=== PATIENT | male | born 1950 | race Caucasian/White ===

== ENCOUNTER 2020-03-29 13:16 | Inpatient (IN) ==
[2020-03-29 13:59] LABS: ABS Basophils 0.1 10^3/ul (0-0.2); ABS Eosinophils 0.1 10^3/ul (0-0.6); ABS Lymphocytes 1.5 10^3/ul (1.0-4.8); ABS Monocytes 0.7 10^3/ul (0-0.8); Eosinophil % 1.1 %; Hematocrit 46 % (42-52); Hemoglobin 15.6 g/dL (14.0-18.0); Lymphocyte % 14.4 %; Mean Corpuscular HGB Conc 34 g/dL (31-36); Mean Corpuscular Hemoglobin 31 pg (27-31); Mean Corpuscular Volume 90 fL (80-94); Platelet Count 245 10^3/uL (150-450); Red Blood Count 5.09 10^6 /uL (4.18-5.48); Red Cell Distribution Width 13 % (10-15); White Blood Count 10.3 10^3/uL (3.5-10.8)
[2020-03-29 14:24] LABS: Albumin 4.7 g/dL (3.2-5.2); Albumin/Globulin Ratio 1.7 (1-3); BUN/Creatinine Ratio 21.1 (8-20); Calcium 9.9 mg/dL (8.6-10.3); EGFR African American 67.4 (>60); EGFR Non-African American 55.7 (>60); Globulin 2.7 g/dL (2-4); Magnesium 1.8 mg/dL (1.9-2.7); Potassium 4.4 mmol/L (3.5-5.0); Total Bilirubin 0.4 mg/dL (0.2-1.0); Total Protein 7.4 g/dL (6.4-8.9)
[2020-03-29 15:32] LABS: Urine Appearance Cloudy; Urine Bilirubin Negative (Negative); Urine Blood Negative (Negative); Urine Color Yellow; Urine Glucose Negative (Negative); Urine Ketones Negative (Negative); Urine Nitrite Negative (Negative); Urine Protein 1+(30 mg/dL) (Negative); Urine Specific Gravity 1.033 (1.010-1.030); Urine Urobilinogen Negative (Negative)
[2020-03-29 15:57] LABS: Urine Bacteria Absent (Absent); Urine Red Blood Cell Absent (Absent); Urine White Blood Cell Absent (Absent)
[2020-03-29] MEDS ORDERED: Ondansetron 4 mg VIAL 2 MG/ML 2 ml VIAL IV PRN (16:11)
[2020-03-29 16:18] LABS: TSH Ultra Thyroid Stim Horm 0.22 mcIU/mL (0.34-5.60)
[2020-03-29] MEDS: Morphine 2 MG/ML SYRINGE IV PRN ×2 (17:42→21:49)
[2020-03-29] MEDS: Enoxaparin 40 MG/0.4 ML SYR SUBCUT SCH (18:20)
[2020-03-29] MEDS ORDERED: Iodixanol (CONTRAST) 320 MG/ML 100 ML SDV IV ONE (21:02)
[2020-03-29] MEDS: NS 0.9% 1000 ml BAG 1,000 ML IV SCH (22:05)
[2020-03-30] MEDS: Morphine 2 MG/ML SYRINGE IV PRN ×4 (02:43→20:23)
[2020-03-30 05:42] LABS: ABS Basophils 0.1 10^3/ul (0-0.2); ABS Eosinophils 0.2 10^3/ul (0-0.6); ABS Lymphocytes 1.9 10^3/ul (1.0-4.8); ABS Monocytes 1.4 10^3/ul (0-0.8); ABS Neutrophils 10.5 10^3/ul (1.5-7.7); Eosinophil % 1.6 %; Hematocrit 47 % (42-52); Hemoglobin 16.1 g/dL (14.0-18.0); Lymphocyte % 13.5 %; Mean Corpuscular HGB Conc 34 g/dL (31-36); Mean Corpuscular Hemoglobin 31 pg (27-31); Mean Corpuscular Volume 90 fL (80-94); Mean Platelet Volume 6.7 fL (7.4-10.4); Platelet Count 267 10^3/uL (150-450); Red Blood Count 5.21 10^6 /uL (4.18-5.48); Red Cell Distribution Width 13 % (10-15)
[2020-03-30 06:37] LABS: Albumin 4.9 g/dL (3.2-5.2); Anion Gap 11 mmol/L (2-11); CO2 Carbon Dioxide 25 mmol/L (22-32); Calcium 9.9 mg/dL (8.6-10.3); Chloride 100 mmol/L (101-111); Potassium 4.1 mmol/L (3.5-5.0); Sodium 136 mmol/L (135-145)
[2020-03-30 06:43] LABS: ALT 18 U/L (7-52); AST 18 U/L (13-39); Albumin/Globulin Ratio 1.8 (1-3); Alkaline Phosphatase 87 U/L (34-104); BUN/Creatinine Ratio 18.1 (8-20); Blood Urea Nitrogen 21 mg/dL (6-24); CRP High Sensitivity 1.57 mg/L (<2.00); Creatine Kinase 83 U/L (10-223); EGFR African American 75.5 (>60); EGFR Non-African American 62.4 (>60); Globulin 2.8 g/dL (2-4); Glucose 97 mg/dL (70-100); Total Protein 7.7 g/dL (6.4-8.9)
[2020-03-30 07:02] LABS: Erythrocyte Sed Rate 9 mm/Hr (0-19)
[2020-03-30 07:45] LABS: LDH 177 U/L (140-271); Rheumatoid Factor < 10 IU/mL (<15)
[2020-03-30] MEDS ORDERED: Perflutren Lipid Microsphere 3 ML VIAL ONE (12:17)
[2020-03-30 12:28] LABS: Urine Appearance Clear; Urine Bilirubin Negative (Negative); Urine Blood 1+ (Negative); Urine Color Straw; Urine Glucose Negative (Negative); Urine Ketones Trace (Negative); Urine Nitrite Negative (Negative); Urine Protein Negative (Negative); Urine Specific Gravity 1.021 (1.010-1.030); Urine Urobilinogen Negative (Negative)
[2020-03-30 12:37] LABS: Urine Bacteria Absent (Absent); Urine Red Blood Cell 1+(3-5/hpf) (Absent); Urine White Blood Cell Trace(0-5/hpf) (Absent)
[2020-03-30] MEDS: Enoxaparin 40 MG/0.4 ML SYR SUBCUT SCH (16:32)
[2020-03-30] MEDS: Pantoprazole VIAL 40 MG VIAL IV SCH (18:25)
[2020-03-30] MEDS: Senna TAB 8.6 mg TAB PO PRN (20:23)
[2020-03-30] MEDS: NS 0.9% 1000 ml BAG 1,000 ML IV SCH (21:48)
[2020-03-31] MEDS: Morphine 2 MG/ML SYRINGE IV PRN ×6 (00:52→22:32)
[2020-03-31 05:00] LABS: ABS Basophils 0.1 10^3/ul (0-0.2); ABS Eosinophils 0.2 10^3/ul (0-0.6); ABS Lymphocytes 1.6 10^3/ul (1.0-4.8); ABS Monocytes 1.2 10^3/ul (0-0.8); ABS Neutrophils 6.4 10^3/ul (1.5-7.7); Eosinophil % 2.1 %; Hematocrit 44 % (42-52); Hemoglobin 15.1 g/dL (14.0-18.0); Lymphocyte % 17.3 %; Mean Corpuscular HGB Conc 35 g/dL (31-36); Mean Corpuscular Hemoglobin 31 pg (27-31); Mean Corpuscular Volume 89 fL (80-94); Platelet Count 230 10^3/uL (150-450); Red Blood Count 4.89 10^6 /uL (4.18-5.48); Red Cell Distribution Width 13 % (10-15); White Blood Count 9.5 10^3/uL (3.5-10.8)
[2020-03-31 05:20] LABS: Albumin 4.3 g/dL (3.2-5.2); BUN/Creatinine Ratio 17.3 (8-20); Calcium 9.9 mg/dL (8.6-10.3); EGFR African American 80.3 (>60); EGFR Non-African American 66.4 (>60); Globulin 2.2 g/dL (2-4); Total Bilirubin 0.6 mg/dL (0.2-1.0); Total Protein 6.5 g/dL (6.4-8.9)
[2020-03-31] MEDS: Senna TAB 8.6 mg TAB PO PRN ×2 (09:40→22:32)
[2020-03-31] MEDS: Pantoprazole VIAL 40 MG VIAL IV SCH (09:40)
[2020-03-31] MEDS: NS 0.9% 1000 ml BAG 1,000 ML IV SCH (13:10)
[2020-03-31] MEDS: Enoxaparin 40 MG/0.4 ML SYR SUBCUT SCH (17:52)
[2020-04-01] MEDS: Morphine 2 MG/ML SYRINGE IV PRN ×7 (02:30→20:46)
[2020-04-01] MEDS: NS 0.9% 1000 ml BAG 1,000 ML IV SCH ×2 (04:50→17:48)
[2020-04-01 05:35] LABS: ABS Basophils 0.1 10^3/ul (0-0.2); ABS Eosinophils 0.4 10^3/ul (0-0.6); ABS Lymphocytes 1.4 10^3/ul (1.0-4.8); ABS Monocytes 1.3 10^3/ul (0-0.8); ABS Neutrophils 6.9 10^3/ul (1.5-7.7); Eosinophil % 4.1 %; Hematocrit 40 % (42-52); Hemoglobin 14.1 g/dL (14.0-18.0); Lymphocyte % 14.4 %; Mean Corpuscular HGB Conc 35 g/dL (31-36); Mean Corpuscular Hemoglobin 31 pg (27-31); Mean Corpuscular Volume 89 fL (80-94); Mean Platelet Volume 7.1 fL (7.4-10.4); Platelet Count 191 10^3/uL (150-450); Red Cell Distribution Width 13 % (10-15)
[2020-04-01 05:45] LABS: Albumin 3.9 g/dL (3.2-5.2); Albumin/Globulin Ratio 1.6 (1-3); BUN/Creatinine Ratio 21.2 (8-20); Calcium 9.3 mg/dL (8.6-10.3); EGFR African American 85.7 (>60); EGFR Non-African American 70.8 (>60); Globulin 2.5 g/dL (2-4); Potassium 3.8 mmol/L (3.5-5.0); Total Bilirubin 0.5 mg/dL (0.2-1.0); Total Protein 6.4 g/dL (6.4-8.9)
[2020-04-01] MEDS: Senna TAB 8.6 mg TAB PO PRN ×2 (06:34→20:44)
[2020-04-01] MEDS: Polyethylene Glycol 3350 17 GM PACKET PO PRN (09:53)
[2020-04-01] MEDS: Pantoprazole VIAL 40 MG VIAL IV SCH (09:54)
[2020-04-01] MEDS: Enoxaparin 40 MG/0.4 ML SYR SUBCUT SCH (17:09)
[2020-04-02] MEDS: Morphine 2 MG/ML SYRINGE IV PRN ×5 (01:00→22:48)
[2020-04-02] MEDS: Pantoprazole VIAL 40 MG VIAL IV SCH (09:52)
[2020-04-02] MEDS ORDERED: fentaNYL 100 mcg/2 ml 50 MCG/ML VIAL ONE (14:35)
[2020-04-02] MEDS ORDERED: Midazolam 10 mg/10 ml VIAL 1 mg/ml 10 ml VIAL (10 mg) ONE (14:35)
[2020-04-02] MEDS: Enoxaparin 40 MG/0.4 ML SYR SUBCUT SCH (17:05)
[2020-04-02] MEDS: Senna TAB 8.6 mg TAB PO PRN (20:36)
[2020-04-03] MEDS: Morphine 2 MG/ML SYRINGE IV PRN ×6 (01:38→20:26)
[2020-04-03 07:46] LABS: ABS Basophils 0.1 10^3/ul (0-0.2); ABS Eosinophils 0.6 10^3/ul (0-0.6); ABS Lymphocytes 1.3 10^3/ul (1.0-4.8); ABS Monocytes 1.1 10^3/ul (0-0.8); ABS Neutrophils 6.8 10^3/ul (1.5-7.7); Eosinophil % 5.8 %; Hematocrit 37 % (42-52); Hemoglobin 12.8 g/dL (14.0-18.0); Lymphocyte % 12.8 %; Mean Corpuscular HGB Conc 34 g/dL (31-36); Mean Corpuscular Hemoglobin 31 pg (27-31); Mean Corpuscular Volume 90 fL (80-94); Mean Platelet Volume 7.2 fL (7.4-10.4); Platelet Count 185 10^3/uL (150-450); Red Blood Count 4.16 10^6 /uL (4.18-5.48); Red Cell Distribution Width 13 % (10-15); White Blood Count 9.8 10^3/uL (3.5-10.8)
[2020-04-03 07:58] LABS: Albumin 3.6 g/dL (3.2-5.2); Albumin/Globulin Ratio 1.5 (1-3); BUN/Creatinine Ratio 17.7 (8-20); Calcium 8.9 mg/dL (8.6-10.3); EGFR Non-African American 77.7 (>60); Globulin 2.4 g/dL (2-4); Magnesium 1.4 mg/dL (1.9-2.7); Potassium 3.7 mmol/L (3.5-5.0); Total Bilirubin 0.6 mg/dL (0.2-1.0)
[2020-04-03] MEDS: Pantoprazole VIAL 40 MG VIAL IV SCH (08:43)
[2020-04-03] MEDS ORDERED: Magnesium Sulf 4 GM/100 ML IV 4,000 MG/100 ML BAG IVPB ONE (12:30)
[2020-04-03] MEDS: Enoxaparin 40 MG/0.4 ML SYR SUBCUT SCH (17:15)
[2020-04-03] MEDS: Polyethylene Glycol 3350 17 GM PACKET PO PRN (18:27)
[2020-04-03] MEDS ORDERED: Sodium Phosphate ADULT ENEMA 133 ML BTL PR PRN (18:50)
[2020-04-04] MEDS: Morphine 2 MG/ML SYRINGE IV PRN ×4 (05:49→16:12)
[2020-04-04 06:35] LABS: ABS Lymphocytes 0.9 10^3/ul (1.0-4.8); ABS Monocytes 0.6 10^3/ul (0-0.8); ABS Neutrophils 5.5 10^3/ul (1.5-7.7); Eosinophil % 0.1 %; Hematocrit 38 % (42-52); Hemoglobin 13.3 g/dL (14.0-18.0); Lymphocyte % 12.9 %; Mean Corpuscular HGB Conc 35 g/dL (31-36); Mean Corpuscular Hemoglobin 31 pg (27-31); Mean Corpuscular Volume 89 fL (80-94); Mean Platelet Volume 6.9 fL (7.4-10.4); Platelet Count 209 10^3/uL (150-450); Red Cell Distribution Width 13 % (10-15); White Blood Count 7.1 10^3/uL (3.5-10.8)
[2020-04-04] MEDS: Pantoprazole VIAL 40 MG VIAL IV SCH (09:46)
[2020-04-04] MEDS: Enoxaparin 40 MG/0.4 ML SYR SUBCUT SCH (17:08)
[2020-04-05] MEDS: Polyethylene Glycol 3350 17 GM PACKET PO PRN (08:29)
[2020-04-05] MEDS: Senna TAB 8.6 mg TAB PO PRN (08:29)
[2020-04-05] MEDS: Pantoprazole VIAL 40 MG VIAL IV SCH (08:29)
[2020-04-05 15:23] VITALS: BP 147/85
== END 2020-04-05 14:16 | disposition home or self-care (01) | DRG 73 ==
LOC: CHOA 13:16 → MEDTELE 16:09
PROVIDERS: ADMIT Internal Medicine Hematology & Oncology; ATTEND Internal Medicine Hematology & Oncology

== ENCOUNTER 2020-07-11 15:47 | Inpatient (IN) ==
[2020-07-11] MEDS ORDERED: Senna TAB 8.6 mg TAB PO PRN (17:25)
[2020-07-11] MEDS: Magic MouthWash2-BEN/MAAL/LIDO/NYST 240 ML BTL (alt formulation) SWISH SWAL SCH (21:06)
[2020-07-12 06:09] LABS: ABS Eosinophils 0.1 10^3/ul (0-0.6); ABS Lymphocytes 0.9 10^3/ul (1.0-4.8); ABS Monocytes 0.8 10^3/ul (0-0.8); ABS Neutrophils 2.2 10^3/ul (1.5-7.7); Eosinophil % 2.6 %; Hematocrit 26 % (42-52); Hemoglobin 8.7 g/dL (14.0-18.0); Lymphocyte % 21.9 %; Mean Corpuscular HGB Conc 33 g/dL (31-36); Mean Corpuscular Hemoglobin 32 pg (27-31); Mean Corpuscular Volume 96 fL (80-94); Mean Platelet Volume 8.3 fL (7.4-10.4); Nucleated Red Blood Cells % 0.4; Platelet Count 64 10^3/uL (150-450); Red Cell Distribution Width 21 % (10-15); White Blood Count 3.9 10^3/uL (3.5-10.8)
[2020-07-12 06:17] LABS: ALT 12 U/L (7-52); AST 14 U/L (13-39); Albumin 3.5 g/dL (3.2-5.2); Albumin/Globulin Ratio 1.5 (1-3); Alkaline Phosphatase 141 U/L (34-104); Anion Gap 6 mmol/L (2-11); BUN/Creatinine Ratio 21.7 (8-20); Blood Urea Nitrogen 20 mg/dL (6-24); CO2 Carbon Dioxide 26 mmol/L (22-32); Calcium 8.8 mg/dL (8.6-10.3); Chloride 106 mmol/L (101-111); EGFR African American 98.7 (>60); EGFR Non-African American 81.6 (>60); Globulin 2.3 g/dL (2-4); Glucose 96 mg/dL (70-100); Magnesium 2.1 mg/dL (1.9-2.7); Potassium 4.1 mmol/L (3.5-5.0); Sodium 138 mmol/L (135-145); Total Protein 5.8 g/dL (6.4-8.9)
[2020-07-12 08:54] LABS: INR 1.12 (0.82-1.09)
[2020-07-12] MEDS ORDERED: Perflutren Lipid Microsphere 3 ML VIAL ONE (09:38)
[2020-07-12] MEDS: Cholecalciferol (VIT D3) 1,000 unit TAB PO SCH (10:53)
[2020-07-12] MEDS: Magic MouthWash2-BEN/MAAL/LIDO/NYST 240 ML BTL (alt formulation) SWISH SWAL SCH ×5 (10:55→21:14)
[2020-07-12 12:03] LABS: Cholesterol 106 mg/dL; HDL Cholesterol 40.2 mg/dL; LDL Cholesterol 35 mg/dL; Triglycerides 153 mg/dL
[2020-07-12 12:08] LABS: CKMB ng/mL 2.1 ng/mL (0.6-6.3)
[2020-07-12 14:27] LABS: Erythrocyte Sed Rate 55 mm/Hr (0-19)
[2020-07-13] MEDS: Magic MouthWash2-BEN/MAAL/LIDO/NYST 240 ML BTL (alt formulation) SWISH SWAL SCH ×4 (08:53→22:00)
[2020-07-13] MEDS: Cholecalciferol (VIT D3) 1,000 unit TAB PO SCH (08:53)
[2020-07-13 15:27] LABS: ABS Eosinophils 0.2 10^3/ul (0-0.6); ABS Lymphocytes 1.1 10^3/ul (1.0-4.8); ABS Monocytes 0.9 10^3/ul (0-0.8); ABS Neutrophils 2.2 10^3/ul (1.5-7.7); Eosinophil % 5.4 %; Hematocrit 27 % (42-52); Hemoglobin 8.8 g/dL (14.0-18.0); Lymphocyte % 24.3 %; Mean Corpuscular HGB Conc 33 g/dL (31-36); Mean Corpuscular Hemoglobin 32 pg (27-31); Mean Corpuscular Volume 97 fL (80-94); Mean Platelet Volume 8.3 fL (7.4-10.4); Nucleated Red Blood Cells % 0.4; Platelet Count 91 10^3/uL (150-450); Red Blood Count 2.73 10^6 /uL (4.18-5.48); Red Cell Distribution Width 21 % (10-15); White Blood Count 4.4 10^3/uL (3.5-10.8)
[2020-07-13 15:28] LABS: Albumin 3.2 g/dL (3.2-5.2); Albumin/Globulin Ratio 1.5 (1-3); BUN/Creatinine Ratio 25.3 (8-20); Calcium 8.6 mg/dL (8.6-10.3); EGFR Non-African American 82.6 (>60); Globulin 2.2 g/dL (2-4); Potassium 3.9 mmol/L (3.5-5.0); Total Bilirubin 0.3 mg/dL (0.2-1.0); Total Protein 5.4 g/dL (6.4-8.9)
[2020-07-13 18:38] LABS: TSH Ultra Thyroid Stim Horm 2.86 mcIU/mL (0.34-5.60)
[2020-07-14] MEDS: Cholecalciferol (VIT D3) 1,000 unit TAB PO SCH (09:21)
[2020-07-14] MEDS: Magic MouthWash2-BEN/MAAL/LIDO/NYST 240 ML BTL (alt formulation) SWISH SWAL SCH ×2 (09:23→12:15)
[2020-07-14 11:39] VITALS: BP 120/66
== END 2020-07-14 15:20 | disposition home or self-care (01) | DRG 291 ==
LOC: CHOA 15:47 → MEDTELE 17:02 → INTOOBSV 17:02 → MEDTELE 18:16
PROVIDERS: ADMIT Internal Medicine Hematology & Oncology; ATTEND Internal Medicine Hematology & Oncology

== ENCOUNTER 2020-07-23 16:17 | Inpatient (IN) ==
[2020-07-23 18:22] LABS: Hematocrit 35 % (42-52); Hemoglobin 11.4 g/dL (14.0-18.0); Mean Corpuscular HGB Conc 33 g/dL (31-36); Mean Corpuscular Hemoglobin 33 pg (27-31); Mean Corpuscular Volume 100 fL (80-94); Mean Platelet Volume 8.1 fL (7.4-10.4); Platelet Count 237 10^3/uL (150-450); Red Blood Count 3.48 10^6 /uL (4.18-5.48); Red Cell Distribution Width 26 % (10-15); White Blood Count 11.3 10^3/uL (3.5-10.8)
[2020-07-23 18:32] LABS: Troponin I 0.28 ng/mL (<0.03)
[2020-07-23 18:33] LABS: AST 758 U/L (13-39); Albumin/Globulin Ratio 1.7 (1-3); Alkaline Phosphatase 677 U/L (34-104); Anion Gap 14 mmol/L (2-11); BUN/Creatinine Ratio 30.1 (8-20); Blood Urea Nitrogen 68 mg/dL (6-24); C Reactive Protein 42.29 mg/L (<8.01); CO2 Carbon Dioxide 24 mmol/L (22-32); Chloride 99 mmol/L (101-111); Creatine Kinase 1346 U/L (10-223); EGFR Non-African American 28.9 (>60); Globulin 2.4 g/dL (2-4); Glucose 73 mg/dL (70-100); Potassium 4.7 mmol/L (3.5-5.0); Sodium 137 mmol/L (135-145); Total Protein 6.4 g/dL (6.4-8.9)
[2020-07-23] MEDS ORDERED: cefTRIAXone 1 gm/50 mL NS BAG 1 GM/50 ML BAG IVPB ONE (18:42)
[2020-07-23] MEDS ORDERED: Furosemide 40 mg/4 ml IV VIAL IV SLOW PU ONE (18:43)
[2020-07-23] MEDS ORDERED: Azithromycin 250 MG in NS 0.9% 250 ml 250 ML IVPB ONE (18:43)
[2020-07-23 18:50] LABS: ALT 970 U/L (7-52)
[2020-07-23 19:11] LABS: Microcytosis 1+; Polychromasia 2+
[2020-07-23 19:12] LABS: ABS Lymphocytes 0.9 10^3/ul (1.0-4.8); ABS Monocytes 1.6 10^3/ul (0-0.8); ABS Neutrophils 8.9 10^3/ul (1.5-7.7); ABS Nucleated RBC 0.8 10^3/ul; Nucleated Red Blood Cells % 7.3
[2020-07-23] MEDS ORDERED: NS 0.9% 1000 ml BAG 1,000 ML IV SCH (21:45)
[2020-07-23 21:58] LABS: CKMB ng/mL 6.8 ng/mL (0.6-6.3)
[2020-07-23] MEDS: methylPREDNISolone 125 mg 2 ML VIAL IV SCH (23:08)
[2020-07-24 01:39] LABS: Urine Appearance Cloudy; Urine Bilirubin Negative (Negative); Urine Blood 3+ (Negative); Urine Color Yellow; Urine Glucose Negative (Negative); Urine Ketones Negative (Negative); Urine Nitrite Negative (Negative); Urine Protein Negative (Negative); Urine Specific Gravity 1.011 (1.010-1.030); Urine Urobilinogen Negative (Negative)
[2020-07-24 01:48] LABS: Urine Creatinine Concentration 36.31 mg/dL
[2020-07-24 01:49] LABS: Urine Bacteria 1+ (Absent); Urine Red Blood Cell 3+(>10/hpf) (Absent); Urine White Blood Cell Trace(0-5/hpf) (Absent)
[2020-07-24 04:29] LABS: Hematocrit 34 % (42-52); Hemoglobin 10.8 g/dL (14.0-18.0); Mean Corpuscular HGB Conc 32 g/dL (31-36); Mean Corpuscular Hemoglobin 33 pg (27-31); Mean Corpuscular Volume 101 fL (80-94); Mean Platelet Volume 8.1 fL (7.4-10.4); Platelet Count 218 10^3/uL (150-450); Red Blood Count 3.31 10^6 /uL (4.18-5.48); Red Cell Distribution Width 26 % (10-15); White Blood Count 11.1 10^3/uL (3.5-10.8)
[2020-07-24 04:30] LABS: INR 2.24 (0.82-1.09)
[2020-07-24 04:38] LABS: AST 386 U/L (13-39); Albumin 3.6 g/dL (3.2-5.2); Albumin/Globulin Ratio 1.6 (1-3); Alkaline Phosphatase 597 U/L (34-104); Anion Gap 15 mmol/L (2-11); BUN/Creatinine Ratio 31.9 (8-20); Blood Urea Nitrogen 68 mg/dL (6-24); CO2 Carbon Dioxide 24 mmol/L (22-32); Calcium 8.4 mg/dL (8.6-10.3); Chloride 100 mmol/L (101-111); EGFR African American 37.5 (>60); Globulin 2.3 g/dL (2-4); Glucose 82 mg/dL (70-100); Potassium 4.2 mmol/L (3.5-5.0); Sodium 139 mmol/L (135-145); Total Protein 5.9 g/dL (6.4-8.9)
[2020-07-24 04:44] LABS: Troponin I 0.25 ng/mL (<0.03)
[2020-07-24 04:55] LABS: ALT 738 U/L (7-52)
[2020-07-24 05:24] LABS: ABS Lymphocytes 0.4 10^3/ul (1.0-4.8); ABS Monocytes 0.6 10^3/ul (0-0.8); ABS Nucleated RBC 0.3 10^3/ul; Lymphocyte % 3.8 %; Nucleated Red Blood Cells % 2.7
[2020-07-24 08:20] LABS: Creatine Kinase 1176 U/L (10-223)
[2020-07-24] MEDS ORDERED: Perflutren Lipid Microsphere 3 ML VIAL ONE (09:07)
[2020-07-24] MEDS: Cholecalciferol (VIT D3) 1,000 unit TAB PO SCH (09:54)
[2020-07-24] MEDS: methylPREDNISolone 125 mg 2 ML VIAL IV SCH (09:55)
[2020-07-24 11:56] LABS: Magnesium 2.6 mg/dL (1.9-2.7)
[2020-07-24] MEDS ORDERED: methylPREDNISolone 125 mg 1,000 MG in NS 0.9% 100 ml BAG 100 ML IV SCH (12:00)
[2020-07-24] MEDS: methylPREDNISolone SOD SUCC 1000 MG in NS 0.9% 100 ML IVPB SCH (12:24)
[2020-07-24 21:26] LABS: Albumin 3.4 g/dL (3.2-5.2); Albumin/Globulin Ratio 1.5 (1-3); BUN/Creatinine Ratio 32.4 (8-20); Calcium 8.5 mg/dL (8.6-10.3); EGFR African American 46.7 (>60); EGFR Non-African American 38.6 (>60); Globulin 2.3 g/dL (2-4); Potassium 4.2 mmol/L (3.5-5.0); Total Bilirubin 0.8 mg/dL (0.2-1.0); Total Protein 5.7 g/dL (6.4-8.9)
[2020-07-25 06:09] LABS: ABS Basophils 0.1 10^3/ul (0-0.2); ABS Lymphocytes 0.4 10^3/ul (1.0-4.8); ABS Monocytes 0.8 10^3/ul (0-0.8); ABS Neutrophils 11.9 10^3/ul (1.5-7.7); ABS Nucleated RBC 0.3 10^3/ul; Hematocrit 34 % (42-52); Hemoglobin 10.9 g/dL (14.0-18.0); Lymphocyte % 2.8 %; Mean Corpuscular HGB Conc 33 g/dL (31-36); Mean Corpuscular Hemoglobin 33 pg (27-31); Mean Corpuscular Volume 102 fL (80-94); Mean Platelet Volume 8.1 fL (7.4-10.4); Nucleated Red Blood Cells % 1.9; Platelet Count 225 10^3/uL (150-450); Red Blood Count 3.31 10^6 /uL (4.18-5.48); Red Cell Distribution Width 26 % (10-15); White Blood Count 13.2 10^3/uL (3.5-10.8)
[2020-07-25 06:16] LABS: ALT 443 U/L (7-52); Albumin 3.4 g/dL (3.2-5.2); Albumin/Globulin Ratio 1.5 (1-3); Alkaline Phosphatase 495 U/L (34-104); Anion Gap 9 mmol/L (2-11); BUN/Creatinine Ratio 36.2 (8-20); Blood Urea Nitrogen 59 mg/dL (6-24); CO2 Carbon Dioxide 29 mmol/L (22-32); Calcium 8.6 mg/dL (8.6-10.3); Chloride 102 mmol/L (101-111); EGFR Non-African American 42.2 (>60); Globulin 2.3 g/dL (2-4); Glucose 178 mg/dL (70-100); Potassium 4.2 mmol/L (3.5-5.0); Sodium 140 mmol/L (135-145); Total Protein 5.7 g/dL (6.4-8.9)
[2020-07-25 06:45] LABS: AST 120 U/L (13-39)
[2020-07-25] MEDS: methylPREDNISolone SOD SUCC 1000 MG in NS 0.9% 100 ML IVPB SCH (08:47)
[2020-07-25] MEDS: Cholecalciferol (VIT D3) 1,000 unit TAB PO SCH (08:47)
[2020-07-25 08:48] LABS: Magnesium 2.4 mg/dL (1.9-2.7)
[2020-07-25 11:45] LABS: Creatine Kinase 397 U/L (10-223)
[2020-07-25 12:03] LABS: Troponin I 0.15 ng/mL (<0.03)
[2020-07-25] MEDS ORDERED: Ondansetron 4 mg VIAL 2 MG/ML 2 ml VIAL IV ONE (18:10)
[2020-07-25] MEDS ORDERED: Ondansetron 4 mg VIAL 2 MG/ML 2 ml VIAL ONE (18:11)
[2020-07-26 06:47] LABS: INR 1.74 (0.82-1.09)
[2020-07-26 06:50] LABS: Creatine Kinase 318 U/L (10-223)
[2020-07-26 06:56] LABS: Troponin I 0.14 ng/mL (<0.03)
[2020-07-26 07:30] LABS: Calcium 8.8 mg/dL (8.6-10.3); Magnesium 2.4 mg/dL (1.9-2.7); Potassium 4.7 mmol/L (3.5-5.0)
[2020-07-26 07:35] LABS: BUN/Creatinine Ratio 34.7 (8-20); C Reactive Protein 14.35 mg/L (<8.01); EGFR Non-African American 34.7 (>60)
[2020-07-26] MEDS: Cholecalciferol (VIT D3) 1,000 unit TAB PO SCH (08:36)
[2020-07-26] MEDS: methylPREDNISolone SOD SUCC 1000 MG in NS 0.9% 100 ML IVPB SCH (09:11)
[2020-07-26 09:56] LABS: Erythrocyte Sed Rate 22 mm/Hr (0-19)
[2020-07-26 10:10] LABS: ABS Lymphocytes 0.4 10^3/ul (1.0-4.8); ABS Monocytes 1.2 10^3/ul (0-0.8); ABS Neutrophils 15.4 10^3/ul (1.5-7.7); ABS Nucleated RBC 0.3 10^3/ul; Hematocrit 33 % (42-52); Hemoglobin 10.5 g/dL (14.0-18.0); Lymphocyte % 2.3 %; Mean Corpuscular HGB Conc 32 g/dL (31-36); Mean Corpuscular Hemoglobin 33 pg (27-31); Mean Corpuscular Volume 103 fL (80-94); Mean Platelet Volume 8.4 fL (7.4-10.4); Nucleated Red Blood Cells % 1.7; Platelet Count 170 10^3/uL (150-450); Red Blood Count 3.22 10^6 /uL (4.18-5.48); Red Cell Distribution Width 26 % (10-15)
[2020-07-26 10:33] LABS: Polychromasia 2+
[2020-07-27 05:41] LABS: ABS Basophils 0.1 10^3/ul (0-0.2); ABS Lymphocytes 0.4 10^3/ul (1.0-4.8); ABS Monocytes 1.4 10^3/ul (0-0.8); ABS Neutrophils 14.3 10^3/ul (1.5-7.7); ABS Nucleated RBC 0.2 10^3/ul; Hematocrit 34 % (42-52); Hemoglobin 10.7 g/dL (14.0-18.0); Lymphocyte % 2.7 %; Mean Corpuscular HGB Conc 32 g/dL (31-36); Mean Corpuscular Hemoglobin 33 pg (27-31); Mean Corpuscular Volume 103 fL (80-94); Mean Platelet Volume 8.7 fL (7.4-10.4); Nucleated Red Blood Cells % 1.4; Platelet Count 143 10^3/uL (150-450); Red Cell Distribution Width 26 % (10-15); White Blood Count 16.2 10^3/uL (3.5-10.8)
[2020-07-27 05:55] LABS: Albumin 3.6 g/dL (3.2-5.2); Albumin/Globulin Ratio 1.6 (1-3); BUN/Creatinine Ratio 39.7 (8-20); EGFR African American 45.8 (>60); EGFR Non-African American 37.8 (>60); Globulin 2.3 g/dL (2-4); Potassium 5.2 mmol/L (3.5-5.0); Total Bilirubin 0.8 mg/dL (0.2-1.0); Total Protein 5.9 g/dL (6.4-8.9)
[2020-07-27] MEDS: Cholecalciferol (VIT D3) 1,000 unit TAB PO SCH (10:20)
[2020-07-27] MEDS: methylPREDNISolone SOD SUCC 1000 MG in NS 0.9% 100 ML IVPB SCH (10:21)
[2020-07-27] MEDS: Senna TAB 8.6 mg TAB PO PRN (19:57)
[2020-07-28 05:13] LABS: ABS Lymphocytes 0.3 10^3/ul (1.0-4.8); ABS Monocytes 1.5 10^3/ul (0-0.8); ABS Neutrophils 16.3 10^3/ul (1.5-7.7); ABS Nucleated RBC 0.1 10^3/ul; Hematocrit 35 % (42-52); Hemoglobin 10.9 g/dL (14.0-18.0); Lymphocyte % 1.8 %; Mean Corpuscular HGB Conc 31 g/dL (31-36); Mean Corpuscular Hemoglobin 32 pg (27-31); Mean Corpuscular Volume 103 fL (80-94); Mean Platelet Volume 9.2 fL (7.4-10.4); Nucleated Red Blood Cells % 0.4; Platelet Count 115 10^3/uL (150-450); Red Blood Count 3.38 10^6 /uL (4.18-5.48); Red Cell Distribution Width 26 % (10-15); White Blood Count 18.2 10^3/uL (3.5-10.8)
[2020-07-28 05:25] LABS: Albumin 3.5 g/dL (3.2-5.2); Albumin/Globulin Ratio 1.5 (1-3); BUN/Creatinine Ratio 45.3 (8-20); Calcium 8.8 mg/dL (8.6-10.3); EGFR African American 62.3 (>60); EGFR Non-African American 51.5 (>60); Globulin 2.4 g/dL (2-4); Total Bilirubin 0.8 mg/dL (0.2-1.0); Total Protein 5.9 g/dL (6.4-8.9)
[2020-07-28 05:38] LABS: Potassium 5.6 mmol/L (3.5-5.0)
[2020-07-28] MEDS: Cholecalciferol (VIT D3) 1,000 unit TAB PO SCH (09:35)
[2020-07-28] MEDS: methylPREDNISolone SOD SUCC 1000 MG in NS 0.9% 100 ML IVPB SCH (10:21)
[2020-07-28] MEDS ORDERED: Albuterol/Ipratropium NEB.SOL (2.5/0.5 MG) 3 ML NEB.SOLN INH PRN (14:00)
[2020-07-28] MEDS: Polyethylene Glycol 3350 17 GM PACKET PO SCH (15:09)
[2020-07-28] MEDS: Senna TAB 8.6 mg TAB PO PRN (20:58)
[2020-07-29 05:45] LABS: BUN/Creatinine Ratio 46.8 (8-20); Calcium 8.5 mg/dL (8.6-10.3); EGFR African American 79.5 (>60); EGFR Non-African American 65.7 (>60); Potassium 4.9 mmol/L (3.5-5.0)
[2020-07-29] MEDS: Cholecalciferol (VIT D3) 1,000 unit TAB PO SCH (08:42)
[2020-07-29] MEDS: Polyethylene Glycol 3350 17 GM PACKET PO SCH (08:50)
[2020-07-29] MEDS ORDERED: methylPREDNISolone SOD SUCC 1000 MG ML VIAL IVPB ONE (09:00)
[2020-07-29] MEDS ORDERED: methylPREDNISolone SOD SUCC 1000 MG in NS 0.9% 100 ML IVPB ONE (09:00)
[2020-07-29] MEDS: Senna TAB 8.6 mg TAB PO PRN (21:22)
[2020-07-30] MEDS: Cholecalciferol (VIT D3) 1,000 unit TAB PO SCH (09:09)
[2020-07-30] MEDS: Polyethylene Glycol 3350 17 GM PACKET PO SCH (09:10)
[2020-07-30 09:40] LABS: ABS Lymphocytes 0.3 10^3/ul (1.0-4.8); ABS Monocytes 1.3 10^3/ul (0-0.8); ABS Neutrophils 16.9 10^3/ul (1.5-7.7); ABS Nucleated RBC 0.1 10^3/ul; Hematocrit 35 % (42-52); Lymphocyte % 1.5 %; Mean Corpuscular HGB Conc 31 g/dL (31-36); Mean Corpuscular Hemoglobin 32 pg (27-31); Mean Corpuscular Volume 103 fL (80-94); Mean Platelet Volume 8.7 fL (7.4-10.4); Nucleated Red Blood Cells % 0.2; Platelet Count 99 10^3/uL (150-450); Red Blood Count 3.39 10^6 /uL (4.18-5.48); Red Cell Distribution Width 25 % (10-15); White Blood Count 18.5 10^3/uL (3.5-10.8)
[2020-07-30 09:51] LABS: Albumin 3.4 g/dL (3.2-5.2); Albumin/Globulin Ratio 1.5 (1-3); BUN/Creatinine Ratio 40.2 (8-20); Calcium 8.6 mg/dL (8.6-10.3); EGFR African American 87.6 (>60); EGFR Non-African American 72.4 (>60); Globulin 2.2 g/dL (2-4); Potassium 4.6 mmol/L (3.5-5.0); Total Bilirubin 0.7 mg/dL (0.2-1.0); Total Protein 5.6 g/dL (6.4-8.9)
[2020-07-30] MEDS: Senna TAB 8.6 mg TAB PO PRN (19:55)
[2020-07-31 04:59] LABS: ABS Lymphocytes 0.7 10^3/ul (1.0-4.8); ABS Monocytes 1.8 10^3/ul (0-0.8); ABS Neutrophils 17.9 10^3/ul (1.5-7.7); Hematocrit 35 % (42-52); Hemoglobin 11.3 g/dL (14.0-18.0); Lymphocyte % 3.4 %; Mean Corpuscular HGB Conc 32 g/dL (31-36); Mean Corpuscular Hemoglobin 32 pg (27-31); Mean Corpuscular Volume 101 fL (80-94); Nucleated Red Blood Cells % 0.1; Platelet Count 107 10^3/uL (150-450); Red Cell Distribution Width 25 % (10-15); White Blood Count 20.4 10^3/uL (3.5-10.8)
[2020-07-31 05:11] LABS: Albumin 3.2 g/dL (3.2-5.2); Albumin/Globulin Ratio 1.8 (1-3); BUN/Creatinine Ratio 35.6 (8-20); Calcium 8.5 mg/dL (8.6-10.3); EGFR African American 101.2 (>60); EGFR Non-African American 83.7 (>60); Globulin 1.8 g/dL (2-4); Potassium 4.6 mmol/L (3.5-5.0); Total Bilirubin 0.8 mg/dL (0.2-1.0)
[2020-07-31] MEDS: Cholecalciferol (VIT D3) 1,000 unit TAB PO SCH (09:40)
[2020-07-31] MEDS: Polyethylene Glycol 3350 17 GM PACKET PO SCH (09:40)
[2020-08-01] MEDS: Cholecalciferol (VIT D3) 1,000 unit TAB PO SCH (08:39)
[2020-08-01] MEDS: Senna TAB 8.6 mg TAB PO PRN (08:39)
[2020-08-01] MEDS: Polyethylene Glycol 3350 17 GM PACKET PO SCH (08:51)
[2020-08-01] MEDS ORDERED: Sodium Phosphate ADULT ENEMA 133 ML BTL PR ONE (08:58)
[2020-08-01] MEDS ORDERED: Benzocaine/Menthol LOZ MT PRN (11:32)
[2020-08-01 11:50] VITALS: BP 131/81
== END 2020-08-01 13:15 | DRG 442 ==
LOC: ED 16:17 → MEDTELE 21:10 → ICU 07-24 12:08 → MEDTELE 07-25 18:36
PROVIDERS: ADMIT Internal Medicine; ATTEND Internal Medicine Hematology & Oncology

== ENCOUNTER 2020-12-30 08:12 | Inpatient (IN) ==
[2020-12-30 09:07] LABS: Hematocrit 42 % (42-52); Hemoglobin 14.4 g/dL (14.0-18.0); Mean Corpuscular HGB Conc 35 g/dL (31-36); Mean Corpuscular Hemoglobin 34 pg (27-31); Mean Corpuscular Volume 97 fL (80-94); Platelet Count 212 10^3/uL (150-450); Red Cell Distribution Width 14 % (10-15); White Blood Count 7.5 10^3/uL (3.5-10.8)
[2020-12-30 09:25] LABS: ALT 11 U/L (7-52); AST 11 U/L (13-39); Albumin 4.3 g/dL (3.2-5.2); Albumin/Globulin Ratio 1.7 (1-3); Alkaline Phosphatase 73 U/L (35-149); Anion Gap 14 mmol/L (2-11); Blood Urea Nitrogen 44 mg/dL (6-24); CO2 Carbon Dioxide 21 mmol/L (22-32); Chloride 101 mmol/L (101-111); EGFR African American 58.7 (>60); EGFR Non-African American 48.5 (>60); Globulin 2.6 g/dL (2-4); Glucose 116 mg/dL (70-100); Magnesium 1.3 mg/dL (1.9-2.7); Potassium 3.1 mmol/L (3.5-5.0); Sodium 136 mmol/L (135-145); Total Protein 6.9 g/dL (6.4-8.9)
[2020-12-30] MEDS ORDERED: Lactated Ringers 1000 ml BAG 1,000 ML IV ONE (09:28)
[2020-12-30 09:34] LABS: Troponin I 0.06 ng/mL (<0.03)
[2020-12-30] MEDS ORDERED: Magnesium Sulf 4 GM/100 ML IV 4,000 MG/100 ML BAG IVPB ONE (09:40)
[2020-12-30 09:58] LABS: ABS Lymphocytes 0.8 10^3/ul (1.0-4.8); ABS Neutrophils 4.7 10^3/ul (1.5-7.7); Eosinophil % 0.2 %; Lymphocyte % 10.1 %
[2020-12-30] MEDS ORDERED: KCL 20 MEQ/100 ML IVPREMIX 20 MEQ/100 ML BAG IV ONE (10:35)
[2020-12-30] MEDS ORDERED: Iodixanol (CONTRAST) 320 MG/ML 100 ML SDV IV ONE (10:43)
[2020-12-30 13:13] LABS: Rapid COVID-19 Molecular Undetected (Undetected)
[2020-12-30] MEDS ORDERED: Enoxaparin 40 MG/0.4 ML SYR SUBCUT SCH (15:00)
[2020-12-30] MEDS ORDERED: Cefepime 2 GM in Dextrose 2 GM/50 ML BAG IV SCH (15:00)
[2020-12-30] MEDS ORDERED: metroNIDAZOLE IV 250 MG/50ML 50 ML IVPB SCH (16:00)
[2020-12-30] MEDS: Ondansetron 4 mg VIAL 2 MG/ML 2 ml VIAL IV PRN ×2 (17:53→22:37)
[2020-12-30] MEDS: NS 0.9% 1000 ml BAG 1,000 ML IV SCH (18:16)
[2020-12-30] MEDS: metroNIDAZOLE IV 250 MG/50ML 50 ML IVPB SCH (20:40)
[2020-12-31] MEDS: metroNIDAZOLE IV 250 MG/50ML 50 ML IVPB SCH ×2 (03:12→12:34)
[2020-12-31 03:28] LABS: Urine Appearance Cloudy; Urine Bilirubin Negative (Negative); Urine Blood Negative (Negative); Urine Color Yellow; Urine Glucose 1+(50 mg/dL) (Negative); Urine Ketones Trace (Negative); Urine Nitrite Negative (Negative); Urine Protein 1+(30 mg/dL) (Negative); Urine Urobilinogen Negative (Negative)
[2020-12-31 03:34] LABS: Urine Bacteria Absent (Absent); Urine Red Blood Cell 1+(3-5/hpf) (Absent); Urine White Blood Cell Trace(0-5/hpf) (Absent)
[2020-12-31 03:46] LABS: Urine Specific Gravity > 1.060 (1.002-1.030)
[2020-12-31] MEDS: Cefepime 2 GM in Dextrose 2 GM/50 ML BAG IV SCH ×2 (04:25→15:36)
[2020-12-31] MEDS: Ondansetron 4 mg VIAL 2 MG/ML 2 ml VIAL IV PRN (05:33)
[2020-12-31 06:02] LABS: Hematocrit 38 % (42-52); Hemoglobin 12.8 g/dL (14.0-18.0); Mean Corpuscular HGB Conc 34 g/dL (31-36); Mean Corpuscular Hemoglobin 33 pg (27-31); Mean Corpuscular Volume 97 fL (80-94); Platelet Count 205 10^3/uL (150-450); Red Blood Count 3.88 10^6 /uL (4.18-5.48); Red Cell Distribution Width 14 % (10-15); White Blood Count 7.9 10^3/uL (3.5-10.8)
[2020-12-31 06:18] LABS: ABS Lymphocytes 1.3 10^3/ul (1.0-4.8); ABS Monocytes 1.9 10^3/ul (0-0.8); ABS Neutrophils 4.6 10^3/ul (1.5-7.7); Eosinophil % 0.3 %; Lymphocyte % 16.8 %
[2020-12-31 06:32] LABS: EGFR Non-African American 73.9 (>60)
[2020-12-31 06:33] LABS: Albumin 3.7 g/dL (3.2-5.2); Albumin/Globulin Ratio 1.7 (1-3); Calcium 8.6 mg/dL (8.6-10.3); EGFR African American 89.4 (>60); Globulin 2.2 g/dL (2-4); Total Bilirubin 0.4 mg/dL (0.2-1.0); Total Protein 5.9 g/dL (6.4-8.9)
[2020-12-31] MEDS: NS 0.9% 1000 ml BAG 1,000 ML IV SCH (10:11)
[2020-12-31] MEDS: Cholecalciferol (VIT D3) 1,000 unit TAB PO SCH (10:13)
[2020-12-31] MEDS ORDERED: Magnesium Sulfate 2 gm BAG 2 GM/50 ML BAG IVPB ONE (10:15)
[2020-12-31] MEDS: KCL 10 MEQ/50 ML IVPREMIX 10 MEQ/50 ML BAG IV SCH ×3 (11:56→15:35)
[2020-12-31] MEDS ORDERED: NS 0.9% 1000 ml BAG 1,000 ML IV SCH (12:24)
[2020-12-31] MEDS: metroNIDAZOLE IV 500 MG/100ML 100 ML IVPB SCH ×2 (13:52→21:25)
[2021-01-01] MEDS: Cefepime 2 GM in Dextrose 2 GM/50 ML BAG IV SCH (02:31)
[2021-01-01] MEDS: metroNIDAZOLE IV 500 MG/100ML 100 ML IVPB SCH (05:00)
[2021-01-01 05:09] LABS: Hematocrit 34 % (42-52); Hemoglobin 11.8 g/dL (14.0-18.0); Mean Corpuscular HGB Conc 34 g/dL (31-36); Mean Corpuscular Hemoglobin 34 pg (27-31); Mean Corpuscular Volume 98 fL (80-94); Mean Platelet Volume 6.8 fL (7.4-10.4); Platelet Count 182 10^3/uL (150-450); Red Blood Count 3.52 10^6 /uL (4.18-5.48); Red Cell Distribution Width 14 % (10-15); White Blood Count 7.2 10^3/uL (3.5-10.8)
[2021-01-01 05:25] LABS: Calcium 8.1 mg/dL (8.6-10.3); EGFR African American 98.4 (>60); EGFR Non-African American 81.3 (>60); Potassium 3.1 mmol/L (3.5-5.0)
[2021-01-01 06:21] LABS: ABS Eosinophils 0.1 10^3/ul (0-0.6); ABS Lymphocytes 1.3 10^3/ul (1.0-4.8); ABS Monocytes 1.2 10^3/ul (0-0.8); ABS Neutrophils 4.6 10^3/ul (1.5-7.7); Eosinophil % 1.7 %; Lymphocyte % 17.6 %; RBC Morphology Normal (Normal)
[2021-01-01] MEDS: Cholecalciferol (VIT D3) 1,000 unit TAB PO SCH (07:59)
[2021-01-01] MEDS: KCL 10 MEQ/50 ML IVPREMIX 10 MEQ/50 ML BAG IV SCH ×4 (10:24→14:10)
[2021-01-01] MEDS: NS 0.9% w/ 40 Meq KCL 1000 ML 1,000 ML IV SCH (15:48)
[2021-01-02] MEDS: Ondansetron 4 mg VIAL 2 MG/ML 2 ml VIAL IV PRN ×2 (02:31→20:24)
[2021-01-02] MEDS: NS 0.9% w/ 40 Meq KCL 1000 ML 1,000 ML IV SCH ×2 (04:35→20:25)
[2021-01-02 05:42] LABS: Hematocrit 37 % (42-52); Hemoglobin 12.5 g/dL (14.0-18.0); Mean Corpuscular HGB Conc 34 g/dL (31-36); Mean Corpuscular Hemoglobin 33 pg (27-31); Mean Corpuscular Volume 99 fL (80-94); Mean Platelet Volume 7.2 fL (7.4-10.4); Platelet Count 212 10^3/uL (150-450); Red Blood Count 3.79 10^6 /uL (4.18-5.48); Red Cell Distribution Width 14 % (10-15)
[2021-01-02 05:59] LABS: Albumin 3.6 g/dL (3.2-5.2); Albumin/Globulin Ratio 1.7 (1-3); Calcium 8.5 mg/dL (8.6-10.3); EGFR African American 109.3 (>60); EGFR Non-African American 90.3 (>60); Globulin 2.1 g/dL (2-4); Potassium 3.5 mmol/L (3.5-5.0); Total Bilirubin 0.3 mg/dL (0.2-1.0); Total Protein 5.7 g/dL (6.4-8.9)
[2021-01-02 06:10] LABS: ABS Eosinophils 0.2 10^3/ul (0-0.6); ABS Lymphocytes 1.8 10^3/ul (1.0-4.8); ABS Monocytes 1.2 10^3/ul (0-0.8); ABS Neutrophils 6.8 10^3/ul (1.5-7.7); Eosinophil % 1.8 %; Lymphocyte % 18.4 %; Nucleated Red Blood Cells % 0.1
[2021-01-02] MEDS ORDERED: Perflutren Lipid Microsphere 3 ML VIAL ONE (07:43)
[2021-01-02] MEDS: Cholecalciferol (VIT D3) 1,000 unit TAB PO SCH (08:42)
[2021-01-02] MEDS ORDERED: PEG 3000 GI LAVAGE 1 GALLON PO ONE (17:25)
[2021-01-03] MEDS: Cholecalciferol (VIT D3) 1,000 unit TAB PO SCH (10:18)
[2021-01-03] MEDS: NS 0.9% w/ 40 Meq KCL 1000 ML 1,000 ML IV SCH (10:38)
[2021-01-03] MEDS ORDERED: Midazolam 10 mg/10 ml VIAL 1 mg/ml 10 ml VIAL (10 mg) ONE (13:01)
[2021-01-03] MEDS ORDERED: fentaNYL 100 mcg/2 ml 50 MCG/ML VIAL ONE (13:01)
[2021-01-04 05:51] LABS: Hematocrit 34 % (42-52); Hemoglobin 11.4 g/dL (14.0-18.0); Mean Corpuscular HGB Conc 34 g/dL (31-36); Mean Corpuscular Hemoglobin 33 pg (27-31); Mean Corpuscular Volume 98 fL (80-94); Mean Platelet Volume 6.8 fL (7.4-10.4); Platelet Count 203 10^3/uL (150-450); Red Blood Count 3.45 10^6 /uL (4.18-5.48); Red Cell Distribution Width 14 % (10-15); White Blood Count 13.5 10^3/uL (3.5-10.8)
[2021-01-04 06:10] LABS: Albumin 3.3 g/dL (3.2-5.2); Albumin/Globulin Ratio 1.8 (1-3); Calcium 8.7 mg/dL (8.6-10.3); EGFR African American 39.5 (>60); EGFR Non-African American 32.6 (>60); Globulin 1.8 g/dL (2-4); Potassium 4.3 mmol/L (3.5-5.0); Total Bilirubin 0.3 mg/dL (0.2-1.0); Total Protein 5.1 g/dL (6.4-8.9)
[2021-01-04 06:38] LABS: ABS Lymphocytes 1.3 10^3/ul (1.0-4.8); ABS Monocytes 1.6 10^3/ul (0-0.8); ABS Neutrophils 10.5 10^3/ul (1.5-7.7); Lymphocyte % 9.9 %; Nucleated Red Blood Cells % 0.1
[2021-01-04] MEDS: Cholecalciferol (VIT D3) 1,000 unit TAB PO SCH (09:16)
[2021-01-04] MEDS ORDERED: methylPREDNISolone SOD 40 mg/ml 1 ml VIAL IV SCH (10:00)
[2021-01-04] MEDS: methylPREDNISolone SOD 40 mg/ml 1 ml VIAL IV SCH ×2 (11:14→18:30)
[2021-01-04] MEDS: NS 0.9% w/ 40 Meq KCL 1000 ML 1,000 ML IV SCH (11:14)
[2021-01-04] MEDS: Ondansetron 4 mg VIAL 2 MG/ML 2 ml VIAL IV PRN (18:30)
[2021-01-05] MEDS: methylPREDNISolone SOD 40 mg/ml 1 ml VIAL IV SCH ×3 (03:01→17:39)
[2021-01-05] MEDS: NS 0.9% w/ 40 Meq KCL 1000 ML 1,000 ML IV SCH (06:29)
[2021-01-05 06:44] LABS: Hematocrit 35 % (42-52); Hemoglobin 11.6 g/dL (14.0-18.0); Mean Corpuscular HGB Conc 33 g/dL (31-36); Mean Corpuscular Hemoglobin 33 pg (27-31); Mean Corpuscular Volume 99 fL (80-94); Mean Platelet Volume 6.8 fL (7.4-10.4); Platelet Count 184 10^3/uL (150-450); Red Blood Count 3.48 10^6 /uL (4.18-5.48); Red Cell Distribution Width 14 % (10-15); White Blood Count 16.3 10^3/uL (3.5-10.8)
[2021-01-05 07:03] LABS: Calcium 8.8 mg/dL (8.6-10.3); EGFR African American 29.2 (>60); EGFR Non-African American 24.1 (>60); Potassium 4.9 mmol/L (3.5-5.0)
[2021-01-05 07:13] LABS: ABS Basophils 0.1 10^3/ul (0-0.2); ABS Monocytes 1.3 10^3/ul (0-0.8); Eosinophil % 0.1 %; Lymphocyte % 5.9 %; RBC Morphology Normal (Normal)
[2021-01-05] MEDS: Cholecalciferol (VIT D3) 1,000 unit TAB PO SCH (09:33)
[2021-01-05 22:37] LABS: Urine Appearance Cloudy; Urine Bilirubin Negative (Negative); Urine Blood 3+ (Negative); Urine Color Amber; Urine Glucose 1+(50 mg/dL) (Negative); Urine Ketones Negative (Negative); Urine Nitrite Negative (Negative); Urine Protein 1+(30 mg/dL) (Negative); Urine Specific Gravity 1.015 (1.002-1.030); Urine Urobilinogen Negative (Negative)
[2021-01-05 22:45] LABS: Urine Bacteria Absent (Absent); Urine Red Blood Cell 3+(>10/hpf) (Absent); Urine White Blood Cell 3+(>20/hpf) (Absent)
[2021-01-06] MEDS: methylPREDNISolone SOD 40 mg/ml 1 ml VIAL IV SCH ×3 (02:28→18:00)
[2021-01-06] MEDS: NS 0.9% w/ 40 Meq KCL 1000 ML 1,000 ML IV SCH ×2 (02:29→21:55)
[2021-01-06 05:57] LABS: Calcium 8.7 mg/dL (8.6-10.3); EGFR African American 39.7 (>60); EGFR Non-African American 32.8 (>60); Potassium 5.3 mmol/L (3.5-5.0)
[2021-01-06] MEDS: Cholecalciferol (VIT D3) 1,000 unit TAB PO SCH (09:00)
[2021-01-06] MEDS ORDERED: Sodium Bicarbonate 8.4% IV 150 MEQ in D5W 1000 ML BAG 850 ML IV ONE (09:30)
[2021-01-06] MEDS ORDERED: Sodium Bicarb 8.4% Vial 50 ML 150 MEQ in D5W 1000 ml BAG 1,000 ML IV SCH (23:30)
[2021-01-07] MEDS: methylPREDNISolone SOD 40 mg/ml 1 ml VIAL IV SCH ×3 (03:09→17:52)
[2021-01-07 05:02] LABS: Hematocrit 39 % (42-52); Hemoglobin 12.5 g/dL (14.0-18.0); Mean Corpuscular HGB Conc 33 g/dL (31-36); Mean Corpuscular Hemoglobin 32 pg (27-31); Mean Corpuscular Volume 98 fL (80-94); Mean Platelet Volume 6.9 fL (7.4-10.4); Platelet Count 152 10^3/uL (150-450); Red Blood Count 3.91 10^6 /uL (4.18-5.48); Red Cell Distribution Width 14 % (10-15); White Blood Count 13.9 10^3/uL (3.5-10.8)
[2021-01-07 05:12] LABS: C Reactive Protein 1.68 mg/L (<8.01); EGFR Non-African American 46.3 (>60); Potassium 3.7 mmol/L (3.5-5.0)
[2021-01-07 05:34] LABS: ABS Lymphocytes 1.8 10^3/ul (1.0-4.8); Lymphocyte % 12.8 %; Nucleated Red Blood Cells % 0.3
[2021-01-07] MEDS: Cholecalciferol (VIT D3) 1,000 unit TAB PO SCH (09:28)
[2021-01-07 11:48] LABS: Troponin I 0.06 ng/mL (<0.03)
[2021-01-08] MEDS: methylPREDNISolone SOD 40 mg/ml 1 ml VIAL IV SCH ×3 (02:09→17:38)
[2021-01-08] MEDS: hydrALAZINE 20 mg/ml 1 ML Vial IV IV SLOW PU PRN (04:18)
[2021-01-08 05:25] LABS: ABS Lymphocytes 0.9 10^3/ul (1.0-4.8); ABS Monocytes 0.5 10^3/ul (0-0.8); ABS Neutrophils 9.3 10^3/ul (1.5-7.7); Hematocrit 37 % (42-52); Hemoglobin 12.5 g/dL (14.0-18.0); Lymphocyte % 8.6 %; Mean Corpuscular HGB Conc 34 g/dL (31-36); Mean Corpuscular Hemoglobin 33 pg (27-31); Mean Corpuscular Volume 97 fL (80-94); Mean Platelet Volume 7.2 fL (7.4-10.4); Nucleated Red Blood Cells % 0.2; Platelet Count 121 10^3/uL (150-450); Red Blood Count 3.79 10^6 /uL (4.18-5.48); Red Cell Distribution Width 14 % (10-15); White Blood Count 10.8 10^3/uL (3.5-10.8)
[2021-01-08 05:40] LABS: Albumin 3.2 g/dL (3.2-5.2); Albumin/Globulin Ratio 1.8 (1-3); Calcium 7.5 mg/dL (8.6-10.3); EGFR African American 69.7 (>60); EGFR Non-African American 57.6 (>60); Globulin 1.8 g/dL (2-4); Potassium 3.6 mmol/L (3.5-5.0); Total Bilirubin 0.5 mg/dL (0.2-1.0)
[2021-01-08] MEDS ORDERED: hydrALAZINE 20 mg/ml 1 ML Vial IV IV SLOW PU ONE (05:43)
[2021-01-08] MEDS: Cholecalciferol (VIT D3) 1,000 unit TAB PO SCH (10:20)
[2021-01-08] MEDS ORDERED: Calcium Carb (TUMS) 500 mg CHEW TAB PO PRN (14:02)
[2021-01-08 16:24] LABS: Adenovirus F40/41 Negative (Negative); Astrovirus Negative (Negative); Cryptosporidium species Negative (Negative); Cyclospora cayetanensis Negative (Negative); Entamoeba histolytica Negative (Negative); Enteroaggregative E.coli(EAEC) Negative (Negative); Enteropathogenic Ecoli(EPEC) Negative (Negative); Enterotoxigenic Ecoli(ETEC) Negative (Negative); Norovirus GI/GII Negative (Negative); Plesiomonas shigelloides Negative (Negative); Salmonella species Negative (Negative); Sapovirus Negative (Negative); Shiga toxin producing E. coli Negative (Negative); Shigella/Enteroinvasive E.coli Negative (Negative); Specimen Source STOOL; Vibrio cholerae Negative (Negative); Yersinia species Negative (Negative)
[2021-01-09 00:41] LABS: Urine Appearance Cloudy; Urine Bilirubin Negative (Negative); Urine Blood 3+ (Negative); Urine Color Yellow; Urine Glucose 2+(150 mg/dL) (Negative); Urine Ketones Negative (Negative); Urine Nitrite Negative (Negative); Urine Protein 1+(30 mg/dL) (Negative); Urine Specific Gravity 1.019 (1.002-1.030); Urine Urobilinogen Negative (Negative)
[2021-01-09 00:53] LABS: Urine Bacteria Absent (Absent); Urine Red Blood Cell 3+(>10/hpf) (Absent); Urine Uric Acid Crystals Present (Absent); Urine White Blood Cell Trace(0-5/hpf) (Absent)
[2021-01-09] MEDS: hydrALAZINE 20 mg/ml 1 ML Vial IV IV SLOW PU PRN (04:05)
[2021-01-09 05:53] LABS: Calcium 7.1 mg/dL (8.6-10.3); EGFR African American 81.8 (>60); EGFR Non-African American 67.6 (>60); Potassium 3.6 mmol/L (3.5-5.0)
[2021-01-09] MEDS: Cholecalciferol (VIT D3) 1,000 unit TAB PO SCH (08:33)
[2021-01-09] MEDS ORDERED: methylPREDNISolone SOD 40 mg/ml 1 ml VIAL IV SCH (09:00)
[2021-01-09] MEDS ORDERED: GANCICLOVIR SODIUM IVPB SCH (10:00)
[2021-01-09] MEDS ORDERED: NS 0.9% IVPB SCH (10:00)
[2021-01-09 10:37] LABS: CMV DNA DETECT/QT, P Undetected IU/mL (Undetected)
[2021-01-09] MEDS ORDERED: inFLIXimab-DYYB (Inflectra) 100 MG/10 ML VIAL IVPB ONE ×2 (11:00→13:19)
[2021-01-09] MEDS ORDERED: INFLIXIMAB ABDA IV ONE (15:00)
[2021-01-09] MEDS ORDERED: NS 0.9% IV ONE (15:00)
[2021-01-09 15:20] LABS: Calcium 7.1 mg/dL (8.6-10.3); EGFR African American 72.4 (>60); EGFR Non-African American 59.9 (>60); Potassium 3.8 mmol/L (3.5-5.0)
[2021-01-09 16:00] LABS: Magnesium 0.7 mg/dL (1.9-2.7)
[2021-01-09] MEDS ORDERED: Magnesium Sulf 4 GM/100 ML IV 4,000 MG/100 ML BAG IVPB ONE (16:10)
[2021-01-09 16:21] LABS: TSH Ultra Thyroid Stim Horm 0.05 mcIU/mL (0.34-5.60)
[2021-01-09 16:23] LABS: Free T4 2.05 ng/dL (0.61-1.12)
[2021-01-09] MEDS: methylPREDNISolone SOD 40 mg/ml 1 ml VIAL IV SCH (22:15)
[2021-01-10 06:35] LABS: Hematocrit 34 % (42-52); Hemoglobin 11.9 g/dL (14.0-18.0); Mean Corpuscular HGB Conc 35 g/dL (31-36); Mean Corpuscular Hemoglobin 34 pg (27-31); Mean Corpuscular Volume 97 fL (80-94); Mean Platelet Volume 7.7 fL (7.4-10.4); Platelet Count 113 10^3/uL (150-450); Red Blood Count 3.51 10^6 /uL (4.18-5.48); Red Cell Distribution Width 14 % (10-15); White Blood Count 11.5 10^3/uL (3.5-10.8)
[2021-01-10 06:47] LABS: ABS Lymphocytes 0.7 10^3/ul (1.0-4.8); ABS Monocytes 0.6 10^3/ul (0-0.8); ABS Neutrophils 10.2 10^3/ul (1.5-7.7); Lymphocyte % 6.4 %; Nucleated Red Blood Cells % 0.1
[2021-01-10 06:54] LABS: Albumin 3.2 g/dL (3.2-5.2); Albumin/Globulin Ratio 1.9 (1-3); Calcium 7.1 mg/dL (8.6-10.3); EGFR African American 85.4 (>60); EGFR Non-African American 70.6 (>60); Globulin 1.7 g/dL (2-4); Magnesium 1.6 mg/dL (1.9-2.7); Potassium 3.7 mmol/L (3.5-5.0); Total Bilirubin 0.5 mg/dL (0.2-1.0); Total Protein 4.9 g/dL (6.4-8.9)
[2021-01-10] MEDS ORDERED: Magnesium Sulf 4 GM/100 ML IV 4,000 MG/100 ML BAG IVPB ONE (08:00)
[2021-01-10] MEDS: Cholecalciferol (VIT D3) 1,000 unit TAB PO SCH (08:42)
[2021-01-10] MEDS: methylPREDNISolone SOD 40 mg/ml 1 ml VIAL IV SCH ×2 (08:44→19:30)
[2021-01-10] MEDS ORDERED: Cholecalciferol (VIT D3) 1,000 unit TAB PO SCH (09:00)
[2021-01-10] MEDS: GANCICLOVIR SODIUM IVPB SCH (13:09)
[2021-01-10] MEDS: NS 0.9% IVPB SCH (13:09)
[2021-01-10 15:42] LABS: Calprotectin <15.6 mcg/g
[2021-01-10 15:52] LABS: QuantiferonTb Gold Plus Result Negative (Negative)
[2021-01-11] MEDS: GANCICLOVIR SODIUM IVPB SCH ×2 (00:27→12:20)
[2021-01-11] MEDS: NS 0.9% IVPB SCH ×2 (00:27→12:20)
[2021-01-11] MEDS ORDERED: Magnesium Sulfate 2 gm BAG 2 GM/50 ML BAG IVPB ONE (07:43)
[2021-01-11 07:54] LABS: Calcium 7.4 mg/dL (8.6-10.3); EGFR African American 91.5 (>60); EGFR Non-African American 75.6 (>60)
[2021-01-11] MEDS: Cholecalciferol (VIT D3) 1,000 unit TAB PO SCH (09:33)
[2021-01-11 18:39] LABS: Magnesium 1.8 mg/dL (1.9-2.7)
[2021-01-12] MEDS: NS 0.9% IVPB SCH ×2 (00:26→10:35)
[2021-01-12] MEDS: GANCICLOVIR SODIUM IVPB SCH ×2 (00:26→10:35)
[2021-01-12] MEDS ORDERED: Furosemide 20 mg/2 ml IV VIAL IV ONE (10:02)
[2021-01-12] MEDS: Cholecalciferol (VIT D3) 1,000 unit TAB PO SCH (11:11)
[2021-01-12 12:51] LABS: Hematocrit 38 % (42-52); Hemoglobin 12.7 g/dL (14.0-18.0); Mean Corpuscular HGB Conc 33 g/dL (31-36); Mean Corpuscular Hemoglobin 33 pg (27-31); Mean Corpuscular Volume 99 fL (80-94); Mean Platelet Volume 7.8 fL (7.4-10.4); Platelet Count 126 10^3/uL (150-450); Red Blood Count 3.85 10^6 /uL (4.18-5.48); Red Cell Distribution Width 14 % (10-15)
[2021-01-12 13:08] LABS: Anion Gap 9 mmol/L (2-11); Blood Urea Nitrogen 28 mg/dL (6-24); CO2 Carbon Dioxide 33 mmol/L (22-32); Calcium 8.3 mg/dL (8.6-10.3); Chloride 98 mmol/L (101-111); EGFR African American 98.4 (>60); EGFR Non-African American 81.3 (>60); Glucose 109 mg/dL (70-100); Potassium 3.9 mmol/L (3.5-5.0); Sodium 140 mmol/L (135-145)
[2021-01-12 13:12] LABS: Troponin I 0.08 ng/mL (<0.03)
[2021-01-12 14:00] LABS: ABS Basophils 0.1 10^3/ul (0-0.2); ABS Lymphocytes 1.2 10^3/ul (1.0-4.8); ABS Monocytes 1.7 10^3/ul (0-0.8); Lymphocyte % 5.8 %
[2021-01-12 15:27] VITALS: BP 117/72
[2021-01-12] MEDS ORDERED: Ondansetron 4 mg VIAL 2 MG/ML 2 ml VIAL IV PRN (15:30)
[2021-01-12] MEDS ORDERED: Morphine 2 MG/ML SYRINGE IV PRN (15:30)
[2021-01-12] MEDS ORDERED: Lorazepam PYXIS KEY PRN (16:20)
[2021-01-12] MEDS: LORazepam 2 mg VIAL 1 ml IV PUSH PRN ×2 (16:28→21:17)
[2021-01-12] MEDS ORDERED: Atropine 1% (ORAL/SL) 15 ML BTL SL PRN (23:36)
[2021-01-12] MEDS ORDERED: Morphine ORAL CONCENTRATE 5 MG/0.25 ML ORAL.SYRIN SL PRN (23:36)
[2021-01-13] MEDS ORDERED: methylPREDNISolone SOD 40 mg/ml 1 ml VIAL IV SCH (09:00)
== END 2021-01-13 01:08 | disposition expired | DRG 392 ==
LOC: ED 08:12 → MED 14:39
PROVIDERS: ADMIT Physician Assistant; ATTEND Physician Assistant